=== PATIENT | female | born 1980 | race Caucasian/White ===

== ENCOUNTER 2024-11-20 19:57 | Emergency (ER) | payer BC, SELFPAY ==
--- OUTSIDE RECORDS SUMMARY | 2024-11-06 14:32 | XMS_ITS | Encounter Summary ---
Author Organization [facility] tem Address [facility] [place] [id number] [address] [place] [address] Care Team Providers Care Allied Health Instructor Name Role Phone Unavailable Primary Care Provider Unavailabl e Encounter Details Date Type Department Care Team (Latest Contact Info) Description 11/06/2024 2:32 PM EDT - 11/06/2024 11:59 PM EDT Hospital Encounter [facility] - Mammography/DEXA Imaging [address] [place] [address] Visit for screening mammogram Discharge Disposition: Home Social History Tobacco Use Types Packs/Day Years Used Date Smoking Tobacco: Never Smokeless Tobacco: Never Alcohol Use Standard Drinks/Week Comments No 0 (1 standard drink = 0.6 oz pur e alcohol) Childcare Answer Date Recorded Childcare Unknown 10/09/2018 Employment Answer Date Recorded Employment Unknown 10/09/2018 Hunger Screening Answer Date Recorded Within the past 12 months we worried whether our food would run out before we got money to buy more. Never True 07/07/2024 Within the past 12 months th e food we bought just didn't last and we didn't have money to get more. Never True 07/07/2024 Purpose - Life Answer Date Recorded Purpose and direction in life Unknown Comments No Sex and Gender Information Value Date Recorded Sex Assigned at Not on file Legal Sex Female 11:22 AM EDT Gender Identity Not on file Sexual Orientation Not on file documented as of this encounter Last Filed Vital Signs Vital Sign Reading Time Taken Comments Blood Pressure - - Pulse - - Temperature - - Respiratory Rate - - Oxygen Saturation - - Inhaled Oxygen Concentration - - Weight 68.9 kg (152 lb) 11/06/2024 2:39 PM EDT Height 160 cm (5' 3 ) 11/06/2024 2:39 PM EDT Body Mass Index 26.93 11/06/2024 2:39 PM EDT documented in this encounter Medications at Time of Discharge albuterol (PROVENTIL HFA;VENTOLIN HFA) 90 mcg/actuation inhalerIndicatio ns:Persistent asthma without complication, unspecified asthma severity Inhale 2 puffs every 4 (four) hours as needed for wheezing. 18 g 5 02/20/2022 albuterol (PROVENTIL HFA;VENTOLIN HFA) 90 mcg/actuation inhaler Inhale 2 puffs every 4 (four) hours as needed for wheezing or shortness of breath. aspirin-acetamin ophen-caffeine (EXCEDRIN EXTRA STRENGTH) 250-250-65 mg per tablet Take 2 tablets by mouth. cholecalciferol, vitamin D3, 2,000 units capsule Take 1 capsule (2,000 Units total) by mouth in the morning. 10/21/2024 DULoxetine (CYMBALTA) 30 mg capsule Take 1 capsule (30 mg total) by mouth in the morning. 11/03/2024 fluticasone propionate (FLONASE) 50 mcg/actuation nasal spray Administer 1 spray into each nostril in the morning. 16 g 07/08/2024 ibuprofen (MOTRIN) 800 mg tablet Take 1 tablet (800 mg total) by mouth every 6 (six) hours as needed for pain, fever or headaches. omeprazole (PriLOSEC) 20 mg capsule Take 1 capsule (20 mg total) by mouth every morning before breakfast. 10/07/2024 predniSONE (DELTASONE) 50 mg tablet Take 1 tablet (50 mg total) by mouth daily as needed. 10/07/2024 chlorhexidine (PERIDEX) 0.12 % solution Apply 15 mL to the mouth or throat in the morning and 15 mL before bedtime. 07/26/2022 5 inhalational spacing device (AEROCHAMBER MV) spacer 1 each by miscellaneous route in the morning and 1 each before bedtime. 1 each 02/20/2022 lidocaine (LIDODERM) 5 %Indications:Lef t thigh pain Place 1 patch on the skin daily. Remove & Discard patch within 12 hours or as directed by MD Escobedo patch 07/08/2024 5 documented as of this encounter Plan of Treatment Upcoming Encounters Date Type Department Care Team (Latest Contact Info) Description 5 3:40 PM EDT Support Visit [facility] - Pre Admit [address] [place] [address] 5 10:15 AM EDT Hospital Encounter [facility] - Surgery [address] [place] [address] Myron Tanner, DO [address] [place] [address] 5 10:15 AM EDT - 5 11:00 AM EDT Surgery [facility] - Surgery [address] [place] [address] Myron Tanner, DO [address] [place] [address] ESOPHAGOGASTRODUODENOSCOPY DIAGNOSTIC [70389 (CPT )] 5 3:30 PM EDT Appointment [facility] - Ultrasound [address] [place] [address] Zachary Blanco MD [address] [place] [address] 5 10:30 AM EDT Office Visit [facility] [place] [phone] Deng Cantrell MD [address] [place] [address] [address], [address] [place] [address] Scheduled Procedures Name Priority Associated Diagnoses Date/Ti me ESOPHAGOGASTRODUODENOSCOPY DIAGNOSTIC nausea, rectal bleeding 11/24/2024 10:15 AM EDT COLONOSCOPY DIAGNOSTIC / SCREENING nausea, rectal bleeding 11/24/2024 10:15 AM EDT documented as of this encounter Procedures Procedure Name Priority Date/Time Associated Diagnosis Comments MAMM SCREENING BILATERAL W CAD Routine 11/06/2024 2:51 PM EDT Visit for screening mammogram documented in this encounter Results * Mammography screening bilateral with CAD (11/06/2024 2:51 PM EDT) Anatomical Region Laterality Modality Breast Bilateral Mammography 11/10/2024 3:09 PM EDT Narrative 11/10/2024 3:14 PM EDT MARIANNA Toledo KIANNA 1980 [id number] EXAM: MAMM SCREENING BILATERAL W CAD, 11/06/2024 2:32 PM CLINICAL INDICATIONS: Screening, Visit for screening mammogram COMPARISON: 09/07/2020, 01/12/2017 TECHNIQUE: Bilateral digital tomosynthesis MLO and CC views of the breasts were obtained, with creation of synthetic 2D views. Computer aided detection was utilized. FINDINGS: The breasts are extremely dense, which lowers the sensitivity of mammography. There are no suspicious masses, calcifications, or areas of architectural distortion. IMPRESSION: No mammographic evidence of malignancy. BI-RADS: BI-RADS 1 - Negative RECOMMENDATION: Routine screening mammogram in 1 year. As a separate recommendation: Dense breast tissue can obscure small mammographic abnormalities. Supplemental screening methods may be considered to help detect abnormalities within dense tissue. These supplemental screening tests include Molecular Breast Imaging (MBI) and MRI. These tests should be performed in addition to, not as a replacement for, annual screening mammography. Patients should discuss with their healthcare provider which test is appropriate, as accessibility and/or insurance coverage may vary by patient and location. RISK ASSESSMENT: TC Lifetime risk: 10%. The patient's reported personal and family medical history was used calculate their Tyrer-Cuzick lifetime risk of malignancy. Scores less than 20% are not considered high risk per ACR guidelines and patient should continue with the above recommendation. Finalized by Anna Pratt MD on 11/10/2024 3:14 PM 1 d MAMM 1 YR FDA Accredited Performing Facility: [facility] - Mammography/DEXA Imaging [address] [facility] [address] Procedure Note Anna Prtat MD - 11/10/2024 MARIANNA HUTCHISON 1980 [id number] EXAM: MAMM SCREENING BILATERAL W CAD, 11/06/2024 2:32 PM CLINICAL INDICATIONS: Screening, Visit for screening mammogram COMPARISON: 09/07/2020, 01/12/2017 TECHNIQUE: Bilateral digital tomosynthesis MLO and CC views of the breastswere obtained, with creation of synthetic 2D views. Computer aideddetection was utilized. FINDINGS: The breasts are extremely dense, which lowers the sensitivity ofmammography. There are no suspicious masses, calcifications, or areas of architecturaldistortion. IMPRESSION: No mammographic evidence of malignancy. BI-RADS: BI-RADS 1 - Negative RECOMMENDATION: Routine screening mammogram in 1 year. As a separate recommendation: Dense breast tissue can obscure smallmammographic abnormalities. Supplemental screening methods may beconsidered to help detect abnormalities within dense tissue. Thesesupplemental screening tests include Molecular Breast Imaging (MBI) andMRI. These tests should be performed in addition to, not as a replacement for, annual screeningmammography. Patients should discuss with their healthcare provider whichtest is appropriate, as accessibility and/or insurance coverage may varyby patient and location. RISK ASSESSMENT: TC Lifetime risk: 10%. The patient's reported personal and family medical history was usedcalculate their Tyrer-Cuzick lifetime risk of malignancy. Scores less than20% are not considered high risk per ACR guidelines and patient shouldcontinue with the above recommendation. Finalized by Anna Pratt MD on 11/10/2024 3:14 PM 1 d MAMM 1 YR [facility] Accredited Performing Facility: [facility] - Mammography/DEXA Imaging [address] [facility] [address] [place] OPERATING ROOM TECH-INSPECTOR FUEL HOSE IMG MAMMOGRAPHY ORDERABL ES Final Result documented in this encounter Visit Diagnoses Diagnosis Visit for screening mammogram documented in this encounter
--- OUTSIDE RECORDS SUMMARY | 2024-11-20 10:00 | XMS_ITS | Encounter Summary ---
Author Organization [facility] Address [id number] [address] [place] [address] Care Team Providers Care Government Operations Consultant Name Role Phone Services, [facility] Primary Care Provider Reason for Visit * Reason Comments Nausea Nausea when eating, difficulty having bowel movement, last EGD/Colon 01/25/16 Encounter Details Date Type Department Care Team (Late st Contact Info) Description 11/20/2024 10:00 AM EDT [facility] [address] [place] [address] Larissa Serrato, PROM BURN OFF OPERATOR-SUPERVISOR [employer] [address] [place] [address] Nausea (Primary Dx); Rectal bleeding; History of gastric ulcer Social History Tobacco Use Types Packs/Day Years [...] got money to buy more. Never True 11/20/2024 Within the past 12 months th e food we bought just didn't last and we didn't have money to get more. Never True 11/20/2024 Purpose - Life Answer Date Recorded Purpose and direction in life Unknown Comments No Sex and Gender Information Value Date Recorded Sex Assigned at Not on file Legal Sex Female 11:22 AM EDT Gender Identity Not on file Sexual Orientation Not on file documented as of this encounter Last Filed Vital Signs Vital Sign Reading Time Taken Comments Blood Pressure 175/88 11/20/2024 10:03 AM EDT Pulse 71 11/20/2024 10:03 AM EDT Temperature - - Respiratory Rate - - Oxygen Saturation - - Inhaled Oxygen Concentration - - Weight 69.4 kg (153 lb) 11/20/2024 10:03 AM EDT Height 160 cm (5' 3 ) 11/20/2024 10:03 AM EDT Body Mass Index 27.1 11/20/2024 10:03 AM EDT documented in this encounter Progress Notes * Larissa Serrato, PROM BURN OFF OPERATOR-SUPERVISOR MIRROR [employer]RICATION - 11/20/2024 10:00 AM EDT Images from the original note were not included. Chief Complaint: Nausea History of Present Illness Marianna Bell is a 44 y.o. female who presents to the office for nausea and upper abdominal pain. Symptoms started 3-4 weeks ago. She states she feels intensely hungry but can not eat due to hernausea. Even when she does force herself to eat her intense hunger does not go away. She feels backed up with air. She states she does not have normal bowel movements. She endorses straining, but states her bowel movements are soft. She also had a few episodes of bloody stool. She states she drinks very little water and eats minimal fiber. She has been drinking tea. She does not smoke. She has tried Gas-X with no relief. She is taking omeprazole 20 mg daily. She had a CT of her abdomen and pelvis 07/07/2024 which was unremarkable. Her last EGD and colonoscopy were in 2018. EGD revealed esophagitis and several gastric ulcers. Colonoscopy was normal. She is very concerned as colon cancer runs on her mom's side of the family. Shehad a HIDA scan in 2018 that was normal. She has fibromyalgia. Review of Systems Constitutional: Negative for fever and unexpected weight change. HENT: Negative for trouble swallowing. Respiratory: Negative for shortness of breath. Cardiovascular: Negative for chest pain. Gastrointestinal: Positive for nausea, abdominal pain and blood in stool. Negative for diarrhea andconstipation. Genitourinary: Negative for dysuria and difficulty urinating. Musculoskeletal: Negative for gait problem. Skin: Negative for rash and wound. Neurological: Negative for dizziness, weakness and light-headedness. Hematological: Does not bruise/bleed easily. Psychiatric/Behavioral: Negative for confusion. 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[facility]) Migraines Visual impairment Past Surgical History: Procedure Laterality Date ANKLE SURGERY SECTION 99,03,06 x 3 COLONOSCOPY N/A 01/24/2018 Performed by Myron Tanner DO at [facility] EGD N/A 01/24/2018 Performed by Myron Tanner DO at [facility] FRACTURE SURGERY LAPAROSCOPY SINUS SURGERY TONSILLECTOMY UMBILICAL HERNIA REPAIR No Known Allergies Current Outpatient Medications: albuterol (PROVENTIL HFA;VENTOLIN HFA) 90 mcg/actuation inhaler, Inhale 2 puffs every 4 (four) hours as needed for wheezing., Disp: 18 g, Rfl: 5 albuterol (PROVENTIL HFA;VENTOLIN HFA) 90 mcg/actuation inhaler, Inhale 2 puffs every 4 (four) hours as needed for wheezing or shortness of breath., Disp: , Rfl: urxmixx-jrllxkgpbulwk-rtdjsrib (EXCEDRIN EXTRA STRENGTH) 250-250-65 mg per tablet, Take 2 tablets by mouth., Disp: , Rfl: cholecalciferol, vitamin D3, 2,000 units capsule, Take 1 capsule (2,000 Units total) by mouth in the morning., Disp: , Rfl: DULoxetine (CYMBALTA) 30 mg capsule, Take 1 capsule (30 mg total) by mouth in the morning., Disp: ,Rfl: fluticasone propionate (FLONASE) 50 mcg/actuation nasal spray, Administer 1 spray into each nostrilin the morning. (Patient taking differently: Administer 1 spray into each nostril daily as needed.), Disp: 16 g, Rfl: 0 ibuprofen (MOTRIN) 800 mg tablet, Take 1 tablet (800 mg total) by mouth every 6 (six) hours as needed for pain, fever or headaches., Disp: , Rfl: omeprazole (PriLOSEC) 20 mg capsule, Take 1 capsule (20 mg total) by mouth every morning before breakfast., Disp: , Rfl: predniSONE (DELTASONE) 50 mg tablet, Take 1 tablet (50 mg total) by mouth daily as needed., Disp: ,Rfl: sod sulf-pot chloride-mag sulf 1.479-0.188- 0.225 gram tablet, Please see instructional sheet givenby physicians office., Disp: 24 tablet, Rfl: 0 Social History Socioeconomic History Marital status: Spouse name: Not on file Number of children: Not on file Years of education: Not on file Highest education level: Not on file Occupational History Not on file Tobacco Use Smoking status: Never Smokeless tobacco: Never Vaping Use Vaping status: Never Used Substance and Sexual Activity Alcohol use: No Drug use: Never Sexual activity: Defer Other Topics Concern Not on file Social History Narrative Not on file Social Drivers of Health Financial Resource Strain: Not on file Food Insecurity: No Food Insecurity (11/20/2024) Hunger Screening Food Insecurity - Worry: Never True Food Insecurity - Inability: Never True Transportation Needs: Not on file Physical Activity: Not on file Stress: Not on file Social Connections: Not on file Interpersonal Safety: Not on file Housing Instability: Not on file Family History Problem Relation Age of Onset Colonic polyp Mother Hypertension Mother Hypertension Father Polycystic kidney disease Father Diabetes Father Kidney disease Father Colon cancer Maternal Grandmother Colon cancer Other Kidney disease Paternal Uncle Both types in run in fathers family Breast cancer Neg Hx Objective Physical Exam Constitutional: Appearance: She is not toxic-appearing. HENT: Head: Normocephalic and atraumatic. Mouth/Throat: Mouth: Mucous membranes are moist. Eyes: Pupils: Pupils are equal, round, and reactive to light. Cardiovascular: Rate and Rhythm: Normal rate. Pulmonary: Effort: Pulmonary effort is normal. No respiratory distress. Abdominal: General: There is no distension. Palpations: Abdomen is soft. Tenderness: There is no abdominal tenderness. There is no guarding or rebound. Musculoskeletal: General: Normal range of motion. Skin: General: Skin is warm and dry. Neurological: Mental Status: She is alert and oriented to person, place, and time. Mental status is at baseline. Vital Signs: Blood pressure 175/88, pulse 71, height 160 cm (5' 3 ), weight 69.4 kg (153 lb), last menstrual period 10/16/2024. Respiratory Source: No data recorded Admission Weight: Weight: 69.4 kg (153 lb) Labs Lab Results Component Value Date WBC 7.2 07/07/2024 HGB 13.5 07/07/2024 HCT 38.8 07/07/2024 MCV 86 07/07/2024 PLT 340 07/07/2024 Lab Results Component Value Date GLU 104 (H) 07/07/2024 CALCIUM 9.0 07/07/2024 K 3.7 07/07/2024 CO2 24 07/07/2024 CL 110 (H) 07/07/2024 BUN 24 (H) 07/07/2024 CREATININE 0.69 07/07/2024 No results found for: AMYLASE Lab Results Component Value Date LIPASE 33 01/18/2021 Lab Results Component Value Date ALT 26 07/16/2024 AST 22 07/16/2024 ALKPHOS 47 07/07/2024 Lab Results Component Value Date INR 1.1 10/28/2017 PROTIME 12.8 (H) 10/28/2017 Assessment Nausea, upper abdominal pain rule out gastritis, ulcers Rectal bleeding Family history of colon cancer in grandmother and uncle History of fibromyalgia Plan Increase omeprazole to 40 mg. Cut back on tea if it is caffeinated. Encouraged adequate water and healthy diet with fruits and vegetables. Schedule EGD and colonoscopy. Evaluation included: Preparing to see the patient (e.g., review of tests) Obtaining and/or reviewing separately obtained history Performing a medically appropriate examination and/or evaluation Counseling and educating the patient/family/caregiver Referring and communicating with other health residential child care counselor Nausea [R11.0] MELVA MAHAN [facility] [place] [place] This note was created with the assistance of a speech recognition program. While intending to generate a timely document that accurately reflects the content of the visit, no guarantee can be provided that every grammatical or spelling mistake has been or will be identified or corrected. Thank you for your understanding. MELVA Mahan 11/20/24 1104 documented in this encounter Plan of Treatment Upcoming Encounters Date Type Department Care Team (Latest Contact Info) Description 3:40 PM EDT Support Visit [facility] - Pre Admit [address] [place] [address] 5 10:15 AM EDT Hospital Encounter [facility] - Surgery [address] [place] [address] Myron Tanner, DO [address] [place] [address] 5 10:15 AM EDT - 5 11:00 AM EDT Surgery [facility] - Surgery [address] [place] [address] Myron Tanner, DO [address] [place] [address] ESOPHAGOGASTRODUODENOSCOPY DIAGNOSTIC [37336 (CPT )] 5 3:30 PM EDT Appointment [facility] - Ultrasound [address] [place] [address] Zachary Blanco MD [address] [place] [address] 5 10:30 AM EDT Office Visit [facility] Neurology [address] [place] [address] Deng Cantrell MD [address] [place] [address] 101, [address] [place] [address] Scheduled Orders Name Type Priority Associated Diagnoses Orde r Schedule Colonoscopy GI Routine Rectal bleeding 1 Occurrences starting 11/20/2024 until 11/20/2025 EGD GI Routine Nausea 1 Occurrences starting 11/20/2024 until 11/20/2025 Scheduled Procedures Name Priority Associated Diagnoses Date/Ti me ESOPHAGOGASTRODUODENOSCOPY DIAGNOSTIC nausea, rectal bleeding 11/24/2024 10:15 AM EDT COLONOSCOPY DIAGNOSTIC / SCREENING nausea, rectal bleeding 11/24/2024 10:15 AM EDT documented as of this encounter Goals Goal Patient Goal Type Associated Problems Recent Progress Patient-Stated? Author Autogenera kathrine Goal Care Plan Autogenerated Problem No Lamar Devibeth documented as of this encounter Visit Diagnoses Diagnosis Nausea- Primary Nausea alone Rectal bleeding Hemorrhage of rectum and anus History of gastric ulcer documented in this encounter Additional Health Concerns Active Problems Noted Date Diagnosed Date Autogenerated Problem 11/20/2024 documented as of this encounter Care Teams Government Operations Consultant Relationship Specialty Start Date End Date [facility], [facility] [address] [place] PCP - General Family Medicine 11/20/24 documented as of this encounter
--- OUTSIDE RECORDS SUMMARY | 2024-11-20 18:02 | XMS_ITS | Encounter Summary ---
Author Organization [facility] tem Address [id number] [address] [place] [address] Care Team Providers Care Athletic Coach Name Role Phone Services, [facility] Primary Care Provider Reason for Visit * Reason Comments Abdominal Pain Encounter Details Date Type Department Care Team (Late st Contact Info) Description 11/20/2024 6:02 PM EDT - 11/20/2024 7:13 PM EDT Emergency [facility] - Emergency [address] [place] [address] Discharge Disposition: Left Without Treatment Social History Tobacco Use Types Packs/Day Years [...] Sign Reading Time Taken Comments Blood Pressure 135/97 11/20/2024 6:08 PM EDT Pulse 91 11/20/2024 6:08 PM EDT Temperature 36.4 C (97.5 F) 11/20/2024 6:08 PM EDT Respiratory Rate 20 11/20/2024 6:08 PM EDT Oxygen Saturation 100% 11/20/2024 6:08 PM EDT Inhaled Oxygen Concentration - - Weight 69.4 kg (153 lb) 11/20/2024 6:08 PM EDT Height 160 cm (5' 3 ) 11/20/2024 6:08 PM EDT Body Mass Index 27.1 11/20/2024 6:08 PM EDT documented in this encounter Medications [...] total) by mouth daily as needed. 10/07/2024 sod sulf-pot chloride-mag sulf 1.479-0.188- 0.225 gram tabletIndication s:Rectal bleeding Please see instructional sheet given by physicians office. 24 tablet 11/20/2024 documented as of this encounter ED Notes * Cristal Parr RN - 11/20/2024 6:10 PM EDT Pt presents with c/o abdominal pain for 4 weeks that has progressively gotten worse the last 2 days. Pt reports is scheduled for a scope on Sunday. documented in this encounter Plan of Treatment Upcoming Encounters Date Type Department Care Team (Latest Contact Info) Description 5 3:40 PM EDT Support Visit [facility] - Pre Admit [address] [place] [address] 5 10:15 AM EDT Hospital Encounter [facility] - Surgery [address] [place] [address] Myron Tanner, DO [address] [place] [address] 5 10:15 AM EDT - 5 11:00 AM EDT Surgery [facility] - Surgery [address] [place] [address] Myron Tanner, DO [address] [place] [address] ESOPHAGOGASTRODUODENOSCOPY DIAGNOSTIC [40194 (CPT )] 5 3:30 PM EDT Appointment [facility] - Ultrasound [address] [place] [address] Zachary Blanco MD [address] [place] [address] 5 10:30 AM EDT Office Visit [facility] Physicians Neurology [address] [place] [address] Deng Cantrell MD [address] [place] [address], [facility] [address] [place] [address] Scheduled Orders Name Type Priority Associated Diagnoses Order Schedule POCT Nursing Urine Macroscopic UA Point of Care Testing STAT Once for 1 Occurrences starting 11/20/2024 until 11/20/2024 Extra Urine Lab STAT Once for 1 Occurrences starting 11/20/2024 until 11/20/2024 Extra Urine Culture Lab STAT Once for 1 Occurrences starting 11/20/2024 until 11/20/2024 Scheduled Procedures Name Priority Associated Diagnoses Date/Ti me ESOPHAGOGASTRODUODENOSCOPY DIAGNOSTIC nausea, rectal bleeding 11/24/2024 10:15 AM EDT COLONOSCOPY DIAGNOSTIC / SCREENING nausea, rectal bleeding 11/24/2024 10:15 AM EDT documented as of this encounter Goals Goal Patient Goal Type Associated Problems Recent Progress Patient-Stated? Author Autogenera kathrine Goal Care Plan Autogenerated Problem No Kita Devi documented as of this encounter Visit Diagnoses Not on filedocumented in this encounter Additional Health Concerns Active Problems Noted Date Diagnosed Date Autogenerated Problem 11/20/2024 documented as of this encounter Care Teams Athletic Coach Relationship Specialty Start Date End Date [facility], [facility] [address] [place], [place] PCP - General Family Medicine 11/20/24 documented as of this encounter
[2024-11-20 20:08] VITALS: BP 136/87; PULSE 68; TEMP 36.4; O2SAT 100; BMI 26.6
[2024-11-20 20:29] LABS: Glucose Urine UA NEGATIVE (NEGATIVE)
--- NOTE | 2024-11-20 20:41 | ED.ABDPAIN1 ---
HPI - Abdominal Pain General Chief Complaint: Abdominal Pain Stated Complaint: STOMACH PAINS Time Seen by Provider: 11/20/24 20:13 Source: patient Mode of arrival: walk-in Limitations: no limitations History of Present Illness HPI narrative: This 44-year-old female presents for evaluation of abdominal pain that has been present for the past month. She states it is all across her upper abdomen. She states she has episodes of nausea when she tries to eat. She states she has early satiety. She states that she has been taking a lot of Gas-X and trying fhuo-krf-[id number] natural medications to try to relieve her symptoms. She states her stools are now ribbonlike. She states that she has lost weight. She has not had any fevers or chills. She denies any chest pain or shortness of breath. She did contact Dr. Tanner and is scheduled for a colonoscopy on Sunday. She states the pain has been present for the past month but for the past week it has become increasingly severe and she has had to call off from work multiple times. She is concerned because there is a family history of colon cancer. She also states that she has had 3 hysterectomies and was told that she had endometriosis and adhesions in her abdomen. She is passing gas and belching. This does not relieve any of her pain. Related Data Home Medications ?Medication ?Instructions ?Recorded ?Confirmed amoxicillin 500 mg capsule 500 mg PO Q8H 11/20/24 11/20/24 duloxetine 30 mg capsule,delayed 30 mg PO DAILY 11/20/24 11/20/24 release ergocalciferol (vitamin D2) 1,250 1,250 mcg PO DAILY 11/20/24 11/20/24 mcg (50,000 unit) capsule omeprazole 20 mg capsule,delayed 20 mg PO DAILY 11/20/24 11/20/24 release Allergies Allergy/AdvReac Type Severity Reaction Status Date / Time No Known Drug Allergies Allergy Verified 11/20/24 20:06 Review of Systems ROS Status of ROS 10 or more systems reviewed and unremarkable except as noted in history and below PFSH PFSH Social History Little interest or pleasure in doing things: not at all Feeling down, depressed, or hopeless: not at all Exam Narrative Exam Narrative: Vital signs and Nursing Notes reviewed: Patient is afebrile with a normal pulse, blood pressure is minimally elevated at 136/87, she is not hypoxic with pulse ox of 100% on room air General: Awake, alert, oriented, uncomfortable appearing female, she is lying on the stretcher with her knees pulled up to her abdomen and panting somewhat, no respiratory distress, no active vomiting HEENT: Normocephalic atraumatic, mucous membranes are moist and pink, eyes are clear, normal conjunctiva, vision is grossly intact Chest: Lungs are clear to auscultation with good air entry, there is no wheezing rhonchi or rales appreciated no accessory muscle use, patient is speaking in complete sentences-no chest wall tenderness to palpation CVS: Regular rate and rhythm S1-S2, no murmurs rubs or gallops, pulses are brisk and equal bilaterally ABD: Soft, nondistended, tenderness in the epigastrium, right upper quadrant and left upper quadrant with voluntary guarding, there is no lower abdominal tenderness appreciated. Extremities: Moving all extremities, no lower extremity tenderness or swelling noted, negative Homans' sign, pulses are brisk and equal bilaterally Skin: Normal in appearance without rash,pallor, petechiae or purpura Neuro: No focal deficits Constitutional Vital Signs, click to edit/add: Last Vital Signs Temp 97.6 F 11/20/24 20:08 Pulse 68 11/20/24 20:08 Resp 18 11/20/24 20:08 BP 136/87 11/20/24 20:08 Pulse Ox 100 11/20/24 20:08 O2 Del Method Room Air 11/20/24 20:08 Course Vital Signs Vital signs: Vital Signs Temperature 97.6 F 11/20/24 20:08 Pulse Rate 68 11/20/24 20:08 Respiratory Rate 18 11/20/24 20:08 Blood Pressure 136/87 11/20/24 20:08 Pulse Oximetry 100 11/20/24 20:08 Oxygen Delivery Method Room Air 11/20/24 20:08 Temperature 97.6 F 11/20/24 20:08 Pulse Rate 68 11/20/24 20:08 Respiratory Rate 18 11/20/24 20:08 Blood Pressure 136/87 11/20/24 20:08 Pulse Oximetry 100 11/20/24 20:08 Oxygen Delivery Method Room Air 11/20/24 20:08 MDM - Abdominal Pain MDM Narrative Medical decision making narrative: This 44-year-old female presents for evaluation of generalized abdominal pain specifically in her upper abdomen which has been going on for the past month. She has early satiety, nausea, thin bowel movements and weight loss. She appears to be markedly uncomfortable upon arrival. She has not had any fever. She does have a colonoscopy scheduled with Dr. Tanner next week. She is concerned because there is a family history of colon cancer. Upon arrival she was very uncomfortable appearing and medicated with IV morphine, Zofran and IV fluids. Routine labs were ordered. She has a normal white count and hemoglobin. Electrolytes, liver function test and lactic acid are normal. Lipase and troponin are both normal. Urine is negative for infection. CT scan of the abdomen pelvis with IV contrast was ordered and does not show any acute findings to account for the patient's pain. The results of her labs and CT scan were discussed with her and she was given a copy to share with Dr. Tanner next week. Lab Data Attestation: I reviewed the patient's lab results. Labs: Lab Results 11/20/24 11/20/24 Range/Units 20:15 21:00 WBC 8.4 (4.0-11.0) 10^3/uL RBC 4.67 (4.20-5.40) 10^6/uL Hgb 13.6 (12.0-16.0) g/dL Hct 39.4 (36.0-48.0) % MCV 84.4 (81.0-99.0) fL MCH 29.1 (26.7-34.0) pg MCHC 34.5 (29.9-35.2) g/dL RDW 12.8 (11.0-15.0) % Plt Count 295 (150-450) 10^3/uL MPV 8.8 L (9.5-13.5) fL Neut % (Auto) 70.1 (43.0-75.0) % Lymph % (Auto) 21.6 (20.5-60.0) % [place] % (Auto) 7.2 (1.7-12.0) % Eos % (Auto) 0.5 L (0.9-7.0) % Baso % (Auto) 0.4 (0.2-2.0) % Neut # (Auto) 5.9 (1.4-6.5) 10^3/uL Lymph # (Auto) 1.8 (1.2-3.8) 10^3/uL [place] # (Auto) 0.6 (0.3-0.8) 10^3/uL Eos # (Auto) 0.0 (0.0-0.7) 10^3/uL Baso # (Auto) 0.0 (0.0-0.1) 10^3/uL Abs Immat Gran (auto) 0.02 (0.00-0.03) 10^3/uL Imm/Tot Granulo (auto) 0.2 (0.0-0.5) % Sodium 139 (136-145) mmol/L Potassium 3.3 L (3.5-5.1) mmol/L Chloride 105 (98-107) mmol/L Carbon Dioxide 23.8 (21.0-32.0) mmol/L Anion Gap 13.5 BUN 14.0 (7.0-18.0) mg/dL Creatinine 0.70 (0.55-1.02) mg/dL Est GFR ( Amer) >60 (>=60 mL/min/1.73m^2) Est GFR (Non-Af Amer) >60 (>=60 mL/min/1.73m^2) BUN/Creatinine Ratio 20.0 Glucose 110 H (74-106) mg/dL Lactate 1.8 (0.4-2.0) mmol/L Calcium 9.0 (8.5-10.1) mg/dL Total Bilirubin 0.4 (0.2-1.0) mg/dL AST 18 (15-37) U/L ALT 31 (14-59) U/L Alkaline Phosphatase 58 (46-116) U/L Troponin I High Sens <4.0 L (4.0-51.3) pg/mL Total Protein 7.1 (6.4-8.2) g/dL Albumin 3.7 (3.4-5.0) g/dL Globulin 3.4 g/dL Albumin/Globulin Ratio 1.1 Lipase 45.0 (16.0-77.0) U/L Urine Color Yellow (YELLOW) Urine Clarity Clear (CLEAR) Urine pH 7.5 (5.0-9.0) Ur Specific [place] 1.015 (1.005-1.025) Urine Protein Trace (NEG/TRACE) mg/dL Urine Glucose (UA) Negative (NEGATIVE) mg/dL Urine Ketones Trace A (NEGATIVE) mg/dL Urine Occult Blood Small A (NEGATIVE) Urine Nitrite Negative (NEGATIVE) Urine Bilirubin Negative (NEGATIVE) Urine Urobilinogen 0.2 (0.2-1.0) EU/dL Ur Leukocyte Esterase Negative (NEGATIVE) Urine RBC 0-2 (0-2) #/HPF Urine WBC 0-2 A (NONE SEEN) #/HPF Ur Squamous Epith Cells Few A (NONE/RARE) #/LPF Urine Crystals None seen (None Seen) #/HPF Urine Bacteria Trace A (NONE SEEN) #/HPF Urine Casts None seen (NONE SEEN) #/LPF Urine Mucus Moderate A (NONE SEEN) Ur Culture Indicated? No Urine HCG, Qual Negative (NEGATIVE) Imaging Data x: Radiologist's impression: ITS Impressions Abdomen/Pelvis CT 11/20/24 20:55 IMPRESSION: No acute findings Impression dictated by: Alexsander Lara M.D. 11/20/2024 9:58 PM Dictation Location: [employer] Electronically authenticated by: [id number] Y Date: 11/20/2024 21:58 Discharge Plan Discharge Chief Complaint: Abdominal Pain Clinical Impression: Abdominal pain Patient Disposition: Home, Self-Care Time of Disposition Decision: 22:24 Condition: Good Prescriptions / Home Meds: No Action omeprazole 20 mg capsule,delayed release(DR/EC) 20 mg PO DAILY duloxetine 30 mg capsule,delayed release(DR/EC) 30 mg PO DAILY ergocalciferol (vitamin D2) 1,250 mcg (50,000 unit) capsule 1,250 mcg PO DAILY amoxicillin 500 mg capsule 500 mg PO Q8H Print Language: Slovak Instructions: Abdominal Pain (ED), Colonoscopy (DC) Referrals: [facility] [Other] - 1 week Myron Tanner MD [Physician, General Surgery] - 1 week Physician,Non-Staff, [Primary Care Provider] - 1 week Discharge Date/Time: 11/20/24 22:40
[2024-11-20 20:42] LABS: HCG Qualitative Urine* NEGATIVE (NEGATIVE)
[2024-11-20 20:49] LABS: Cast Seen? NONE SEEN #/LPF (NONE SEEN); Crystals Seen? None Seen #/HPF (None Seen); Urine Culture Indicated NO
--- NOTE | 2024-11-20 20:55 | CT_ITS ---
The [address] [address] Patient Name: CONSTANCE HUTCHISON MRN: [id number] date: 1980 Sex: F Assigned Patient Location: ER Current Patient Location: .MAIN Accession/Order Number: [id number] Exam Date: 11/20/2024 21:53 Report Date: 11/20/2024 21:58 At the request of: TAI ULLOA MD Procedure: CT abdomen pelvis w con CT Abdomen and Pelvis withcontrast TECHNIQUE: Axial imaging with 2-D reconstruction.100 cc of Omni 300. The CT exam was performed using one or more the following dose reduction techniques: Automated exposure control, adjustment of the MA and/or Kv according to patient size, or use of the iterative reconstruction technique. COMPARISON: None History: Left-sided abdominal pain for 4 weeks LIMITATIONS: None LOWER THORAX Unremarkable LIVER: Unremarkable GALLBLADDER: No gallbladder abnormality identified. BILE DUCTS: No dilatation SPLEEN: Unremarkable PANCREAS: Unremarkable ADRENAL GLANDS: Unremarkable KIDNEYS:Tiny cysts. No hydronephrosis. AORTA: No abdominal aortic aneurysm identified. RETROPERITONEUM: No significant retroperitoneal abnormalities identified. MESENTERY:Unremarkable STOMACH:Unremarkable SMALL BOWEL: The small bowel loops are nondistended. APPENDIX: The appendix is normal. COLON: Unremarkable URINARY BLADDER: Urinary bladder is unremarkable. REPRODUCTIVE SYSTEM: Reproductive structures are unremarkable. PNEUMOPERITONEUM: None PERITONEAL FLUID:None BONY STRUCTURES: Unremarkable ABDOMINAL WALL: Unremarkable CT/CT abdomen pelvis w con IMPRESSION: No acute findings Impression dictated by: Alexsander Lara M.D. 11/20/2024 9:58 PM Dictation Location: [employer] Electronically authenticated by: [id number] Y Date: 11/20/2024 21:58
[2024-11-20] MEDS: FAMOTIDINE/PF 20 MG/2 ML VIAL IV (21:10)
[2024-11-20] MEDS: MORPHINE SULFATE 4 MG/ML VIAL IV (21:10)
[2024-11-20 21:11] LABS: Hematocrit 39.4 % (36.0-48.0); Hemoglobin 13.6 g/dL (12.0-16.0); Immature Granulocytes Abs Auto 0.02 10^3/uL (0.00-0.03); Immature Granulocytes Pct Auto 0.2 % (0.0-0.5); Lymphocytes Absolute Auto 1.8 10^3/uL (1.2-3.8); Mean Corpuscular HGB Conc 34.5 g/dL (29.9-35.2); Mean Corpuscular Hemoglobin 29.1 pg (26.7-34.0); Mean Corpuscular Volume 84.4 fL (81.0-99.0); Platelet Count 295 10^3/uL (150-450); Red Blood Count 4.67 10^6/uL (4.20-5.40); White Blood Count 8.4 10^3/uL (4.0-11.0)
--- OUTSIDE RECORDS SUMMARY | 2024-11-20 21:15 | XMS_ITS | Clinical Summary ---
Author Organization [facility] Address [address] [place] [id number] Care Team Providers Care Seconds Inspector Name Role Phone Veena Emily CUT IN WORKER Unavailable [phone] Denita Velazquez CUT IN WORKER Unavailable [phone] Gal Medina MD Unavailable [phone] Allergies No known active allergies Medications naproxen sodium (ALEVE) 220 mg tablet Take 220 mg by mouth twice daily with meals. Active biotin 10,000 mcg ODT Take by mouth. Active Vitamin D3 5000 U (Pure Encapsulations) Take 1 capsule by mouth daily with food. 9 Active Magnesium (Citrate) 150 mg (Pure Encapsulations) Take 4 capsules daily. 120 capsule 5 9 Active Meriva-SR (Travon) Take 2 capsules by mouth twice daily. 9 Active Melatonin-SR (Klaire/Prothera ) Take 1 capsule one hour before bedtime 9 Active ergocalciferol, vitamin D2, (VITAMIN D) 50,000 unit capsule Take 1 capsule by mouth once each week. 8 capsule 3 9 Active doxycycline monohydrate (MONODOX) 100 mg capsule Take 1 capsule by mouth twice daily. 10 capsule 0 Active Active Problems Problem Noted Date Diagnosed Date Constipation 07/17/2018 Bloating 07/17/2018 Chronic pain 07/17/2018 Fibromyalgia 07/17/2018 Fatigue 07/17/2018 Social History Tobacco Use Types Packs/Day Years Used Date Smoking Tobacco: Never Smokeless Tobacco: Never Alcohol Use Standard Drinks/Week Comments Not Currently 0 (1 standard drink = 0.6 oz pur e alcohol) Area Deprivation Index Answer Date Oliver rded National Score (1-100), lower number is lower ri sk Not on file 04/08/2020 State Score (1-10), lower number is lower risk N ot on file 04/08/2020 Data from: https://www.neighborhoodatlas.medicine.[facility]/. Last address used for calculation Not on file 04/08/2020 Comments Unknown Sex and Gender Information Value Date Recorded Sex Assigned at Not on file Legal Sex Female 9:23 AM EST Gender Identity Not on file Sexual Orientation Not on file Last Filed Vital Signs Vital Sign Reading Time Taken Comments Blood Pressure 122/71 07/17/2018 9:56 AM EDT Pulse 74 07/17/2018 9:56 AM EDT Temperature - - Respiratory Rate - - Oxygen Saturation 99% 07/17/2018 9:56 AM EDT Inhaled Oxygen Concentration - - Weight 72.1 kg (159 lb) 07/17/2018 9:56 AM EDT Height 160 cm (5' 3 ) 07/17/2018 9:56 AM EDT Body Mass Index 28.17 07/17/2018 9:56 AM EDT Plan of Treatment Health Maintenance Due Date Last Done Comments Anxiety Screening 1999 Depression Screening 1999 HIV Screening 1999 Hepatitis C Screening 1999 DTaP,Tdap,Td Vaccine (1 - Tdap) 01/18/2000 Hepatitis B Vaccine (1 of 3 - 19+ 3-dose series) 01/17 Cervical Cancer Screening 2002 Mammogram Screening 2021 Influenza Vaccine (#1) 2024 Insurance [employer] MEDICAID OF [place] Care Teams Seconds Inspector Relationship Specialty Start Date End Date Emily Curiel CNP [address] [address] Referring Internal Medicine 07/10/19 Denita Velazquez CNP [address] [facility] [address] [place] [address] Referring Dermatology 07/04/21 Gal Medina MD [address] [place] [address] [address] [place] [address] Referring Ent - Otolaryngology 10/17/23
--- OUTSIDE RECORDS SUMMARY | 2024-11-20 21:15 | XMS_ITS | Clinical Summary ---
Author Organization [facility] Address [address] [place] [address], [address] [place] [address] Care Team Providers Care Automotive Parts Specialist Name Role Phone Unavailable Primary Care Provider Unavailabl e Social History Tobacco Use Types Packs/Day Years Used Date Smoking Tobacco: Never Assessed Comments Unknown Sex and Gender Information Value Date Recorded Sex Assigned at Not on file Legal Sex Female 11:38 PM EST Gender Identity Not on file Sexual Orientation Not on file Plan of Treatment Not on file
--- OUTSIDE RECORDS SUMMARY | 2024-11-20 21:15 | XMS_ITS | Encounter Summary ---
Author Organization [facility] tem Address [id number] [address] [place] [address] Care Team Providers Care Metal Checker Name Role Phone Services, [facility] Primary Care Provider Reason for Visit * Reason Onset Date Comments NEURO REFERRAL 10/08/2024 Encounter Details Date Type Department Care Team (Late st Contact Info) Description 10/08/2024 Telephone [facility] Neurology, A Department of [facility] [address] [facility] [address] [place] [address] Christa Goodwin NEURO REFERRAL Social History Tobacco Use Types Packs/Day Years [...] on file documented as of this encounter Miscellaneous Notes * Telephone Encounter - Christa Goodwin - 10/08/2024 1:44 PM EDT Received Referral for patient from: Mercedes Slade MD Dx: Neuropathic pain Faxed back to the providers office requesting medical notes to support the diagnosis. Fax #: [phone] Date faxed to provider: 10.08.24 documented in this encounter Plan of Treatment Upcoming Encounters Date Type Department Care Team (Latest Contact Info) Description 5 3:40 PM EDT Support Visit [facility] - Pre Admit [address] [place] [address] 5 10:15 AM EDT Hospital Encounter [facility] - Surgery [address] [place] [address] Myron Tanner, DO [address] [place] [address] 5 10:15 AM EDT - 5 11:00 AM EDT Surgery [facility] [address] [place] [address] Myron Tanner, DO [address] [place] [address] ESOPHAGOGASTRODUODENOSCOPY DIAGNOSTIC [19963 (CPT )] 5 3:30 PM EDT Appointment [facility] - Ultrasound [address] [place] [address] Zachary Blanco MD [facility] [place], [place] [id number] 5 10:30 AM EDT Office Visit [facility] Physicians Neurology [place] [address] Deng Cantrell MD [address] [place] [address], [facility] [address] [place] [address] Scheduled Procedures Name Priority Associated Diagnoses Date/Ti me ESOPHAGOGASTRODUODENOSCOPY DIAGNOSTIC nausea, rectal bleeding 11/24/2024 10:15 AM EDT COLONOSCOPY DIAGNOSTIC / SCREENING nausea, rectal bleeding 11/24/2024 10:15 AM EDT documented as of this encounter Visit Diagnoses Not on filedocumented in this encounter Care Teams Metal Checker Relationship Specialty Start Date End Date [facility] [address] [place], [place] PCP - General Family Medicine 11/20/24 documented as of this encounter
--- OUTSIDE RECORDS SUMMARY | 2024-11-20 21:15 | XMS_ITS | Clinical Summary ---
Author Organization [facility] Address [address] [place] [address] Care Team Providers Care Veneer Jointer Offbearer Name Role Phone Unavailable Primary Care Provider Unavailabl e Social History Tobacco Use Types Packs/Day Years Used Date Smoking Tobacco: Never Assessed Comments Unknown Sex and Gender Information Value Date Recorded Sex Assigned at Not on file Legal Sex Female 7:10 PM EDT Gender Identity Not on file Sexual Orientation Not on file Last Filed Vital Signs Vital Sign Reading Time Taken Comments Blood Pressure 127/90 07/02/2019 12:00 PM EST Pulse - - Temperature - - Respiratory Rate - - Oxygen Saturation - - Inhaled Oxygen Concentration - - Weight 70.3 kg (155 lb) 07/02/2019 12:00 PM EST Height 160 cm (5' 3 ) 05/10/2021 12:00 PM EST Body Mass Index 27.46 07/02/2019 12:00 PM EST Plan of Treatment Not on file Insurance MEDICAID [place]
--- OUTSIDE RECORDS SUMMARY | 2024-11-20 21:15 | XMS_ITS | Clinical Summary ---
Author Organization [employer] tem Address [facility] [place]-[id number] [address] [place] [address] Care Team Providers Care Connie Cleaner Name Role Phone Services, [facility] Primary Care Provider Allergies No known active allergies Medications albuterol (PROVENTIL HFA;VENTOLIN HFA) 90 mcg/actuation inhalerIndicati ons:Persistent asthma without complication, unspecified asthma severity Inhale 2 puffs every 4 (four) hours as needed for wheezing. 18 g 5 02/21/20 22 Active albuterol (PROVENTIL HFA;VENTOLIN HFA) 90 mcg/actuation inhaler Inhale 2 puffs every 4 (four) hours as needed for wheezing or shortness of breath. Active ibuprofen (MOTRIN) 800 mg tablet Take 1 tablet (800 mg total) by mouth every 6 (six) hours as needed for pain, fever or headaches. Active aspirin-acetami nophen-caffeine (EXCEDRIN EXTRA STRENGTH) 250-250-65 mg per tablet Take 2 tablets by mouth. Active fluticasone propionate (FLONASE) 50 mcg/actuation nasal spray Administer 1 spray into each nostril in the morning. 16 g 07/09/19 25 Active Additional Information Patient taking differently:1 spray nasalDaily PRN, Informant: Self, Reported on 11/20/2024 cholecalciferol , vitamin D3, 2,000 units capsule Take 1 capsule (2,000 Units total) by mouth in the morning. 10/22/19 25 Active DULoxetine (CYMBALTA) 30 mg capsule Take 1 capsule (30 mg total) by mouth in the morning. 11/04/19 25 Active omeprazole (PriLOSEC) 20 mg capsule Take 1 capsule (20 mg total) by mouth every morning before breakfast. 10/08/19 Active predniSONE (DELTASONE) 50 mg tablet Take 1 tablet (50 mg total) by mouth daily as needed. 10/08/19 Active sod sulf-pot chloride-mag sulf 1.479-0.188- 0.225 gram tabletIndicatio ns:Rectal bleeding Please see instructional sheet given by physicians office. 24 tablet 11/21/19 Active inhalational spacing device (AEROCHAMBER MV) spacer 1 each by miscellaneous route in the morning and 1 each before bedtime. 1 each 02/21/20 Discontinu ed(Patient Stopped On Own) chlorhexidine (PERIDEX) 0.12 % solution Apply 15 mL to the mouth or throat in the morning and 15 mL before bedtime. 07/27/19 Discontinu ed(Patient Stopped On Own) lidocaine (LIDODERM) 5 %Indications:Le ft thigh pain Place 1 patch on the skin daily. Remove & Discard patch within 12 hours or as directed by MD 30 patch 07/09/19 Discontinu ed(Cost of medication ) Active Problems No known active problems Encounters Date Type Department Care Team Description 11/20/2024 6:02 PM EDT - 11/20/2024 7:13 PM EDT Emergency [facility] - Emergency [address] [place] [address] Discharge Disposition: Left Without Treatment 11/20/2024 10:00 AM EDT Office Visit [facility] Physicians General Surgery [address] [place] [phone] Larissa Serrato, EMAIL SPECIALIST-ROBERTH Nausea (Primary Dx); Rectal bleeding; History of gastric ulcer 11/20/2024 Travel 11/06/2024 2:32 PM EDT - 11/06/2024 11:59 PM EDT Hospital Encounter [facility] - Mammography/DEXA Imaging [address] [place] [address] Visit for screening mammogram Discharge Disposition: Home 11/06/2024 Travel 10/30/2024 12:32 PM EDT - 10/30/2024 11:59 PM EDT Hospital Encounter [facility] - MRI Imaging [address] [place] [address] Lumbar radiculopathy Discharge Disposition: Home 10/30/2024 Travel 10/28/2024 Telephone [facility] Department of [place] [address] [facility] [address] [place] [address] Federica Mackay reschedule 10/20/2024 Telephone [facility] Department of [place] [address] [facility] [address] [place] [address] Federica Mackay New Patient 10/15/2024 3:56 PM EDT - 10/15/2024 11:59 PM EDT Hospital Encounter [facility] - Vascular [address] [place] [address] Left leg pain Discharge Disposition: Home 10/15/2024 Travel 10/08/2024 Telephone [facility] Department of [place] [address] [facility] [address] [place] [address] Christa Goodwin A NEURO REFERRAL from Last 3 Months Family History Medical History Relation Name Comments Diabetes Father Dad Hypertension Father Dad Kidney disease Father Dad Polycystic kidney disease Father Dad Colon cancer Maternal Grandmother Grandma Colonic polyp Mother Mom Hypertension Mother Mom Colon cancer Other grandma's brother Kidney disease Paternal Uncle Dad Both types in run in fathers family Breast cancer Neg Hx Relation Name Status Comments Father Dad Alive Maternal Grandmother Grandma Alive Mother Mom Alive Other grandma's brother Paternal Uncle Dad Alive Social History Tobacco Use Types Packs/Day Years Used Date Smoking Tobacco: Never Smokeless Tobacco: Never Tobacco Cessation:Counseling Given: Not Answered Alcohol Use Standard Drinks/Week Comments No 0 [...] Mass Index 27.1 11/20/2024 6:08 PM EDT Plan of Treatment Upcoming Encounters Date Type Department Care Team (Latest Contact Info) Description 3:40 PM EDT Support Visit [facility] - Pre Admit [address] [place] [address] 5 10:15 AM EDT Hospital Encounter [facility] - Surgery [address] [place] [address] Myron Tanner, DO [address] [place] [address] 5 10:15 AM EDT - 11:00 AM EDT Surgery [facility] - Surgery [address] [place] [address] Myron Tanner, DO [address] [place] [address] ESOPHAGOGASTRODUODENOSCOPY DIAGNOSTIC [98366 (CPT )] 5 3:30 PM EDT Appointment [facility] - Ultrasound [address] [place] [address] Zachary Blanco MD [address] [place], [place] [id number] 5 10:30 AM EDT Office Visit [facility] Physicians Neurology [place] [address] [place] [address] Deng Cantrell MD [address] [facility] [address] [place] [address] Scheduled Procedures Name Priority Associated Diagnoses Date/Ti me ESOPHAGOGASTRODUODENOSCOPY DIAGNOSTIC nausea, rectal bleeding 11/24/2024 10:15 AM EDT COLONOSCOPY DIAGNOSTIC / SCREENING nausea, rectal bleeding 11/24/2024 10:15 AM EDT Health Maintenance Due Date Last Done Comments Depression Screening 1993 Adult BMI Follow Up Plan 1999 Pap Smear 2002 DTaP,Tdap and Td Vaccines (5 - Td or Tdap) 03/12/2024 03/12/2014, 1981, 1981, Additional history exists Influenza Vaccine 12/29/2024 01/28/2018 Adult BMI Screening 11/20/2025 11/20/2024 Tobacco Screening 11/20/2025 11/20/2024 Goals Goal Patient Goal Type Associated Problems Recent Progress Patient-Stated? Author Autogenera kathrine Goal Care Plan Autogenerated Problem No Devi, [employer] Not on file Procedures Procedure Name Priority Date/Time Associated Diagnosis Comments MAMM SCREENING BILATERAL W CAD Routine 11/06/2024 2:51 PM EDT Visit for screening mammogram MR LUMBAR SPINE W WO CONT Routine 10/30/2024 1:22 PM EDT Lumbar radiculopathy VASC ARTERIAL DOPPLER LOWER LIMITED SINGLE (COREY) Routine 10/15/2024 4:16 PM EDT Left leg pain from Last 3 Months Results * Mammography screening bilateral with CAD (11/06/2024 2:51 PM EDT) Anatomical Region Laterality Modality Breast Bilateral Mammography 11/10/2024 3:09 PM EDT Narrative 11/10/2024 3:14 PM EDT MARIANNA HUTCHISON 1980 [id number] EXAM: MAMM SCREENING BILATERAL W CAD, 11/06/2024 [...] MAMM 1 YR FDA Accredited Performing Facility: [facility] - Mammography/DEXA Imaging [address] [facility] [id number] Procedure Note Anna Pratt MD - 11/10/2024 MARIANNA HUTCHISON 1980 [id number] EXAM: MAMM SCREENING BILATERAL W CAD, 11/06/2024 [...] MAMM 1 YR FDA Accredited Performing Facility: [facility] - Mammography/DEXA Imaging [address] [facility] [address] [place] EMAIL SPECIALIST-DIRECTOR REPORT IMG MAMMOGRAPHY ORDERABL ES Final Result * MR lumbar spine with and without contrast (10/30/2024 1:22 PM EDT) Anatomical Region Laterality Modality MSK, Neuro, Spine, L-spine, Spine Covera N/A Magnetic Resonance 10/30/2024 2:44 PM EDT Narrative 10/30/2024 2:45 PM EDT Examination: MRI Lumbar spine with contrast. Date of Exam:10/30/2024 History:Low back pain Contrast:None Procedure: Multiplanar multisequence MR imaging performed through the lumbosacral spine including pre and post contrast T1 weighted images. Findings: The alignment is normal. There is no fracture. Vertebral body height and disc space height are well-maintained. There is no disc herniation or lateral recess stenosis. There is appropriate signal within the vertebral bodies and within the distal cord. There is appropriate signal within the posterior elements as well. The conus medullaris terminates at the thoracolumbar junction. The SI joints are patent. Discussion IMPRESSION: 1. Negative exam. Finalized by Franco Mckeon MD on 10/30/2024 2:45 PM Procedure Note Franco Mckeon MD - 10/30/2024 Examination: MRI Lumbar spine with contrast. Date of Exam:10/30/2024 History:Low back pain Contrast:None Procedure: Multiplanar multisequence MR imaging performed through thelumbosacral spine including pre and post contrast T1 weighted images. Findings: The alignment is normal. There is no fracture. Vertebral bodyheight and disc space height are well-maintained. There is no discherniation or lateral recess stenosis. There is appropriate signal withinthe vertebral bodies and within the distal cord. There is appropriatesignal within the posterior elements as well. The conus medullaris terminates at the thoracolumbar junction. The SIjoints are patent. Discussion IMPRESSION: 1. Negative exam. Finalized by Franco Mckeon MD on 10/30/2024 2:45 PM Bhavani Vences MD IMG MRI ORDERABLES Final Result * Vas art doppler lwr limited single (10/15/2024 4:16 PM EDT) Anatomical Region Laterality Modality Vascular N/A Ultrasound 10/15/2024 4:21 PM EDT Narrative 10/15/2024 6:07 PM EDT Right: Essentially normal PVR waveform contour at the ankle. PT COREY is 1.07; DP COREY is 1.09. TBI is 0.77. Multiphasic with diastolic flow reversal PT and DP CW Doppler waveforms. Left: Essentially normal PVR waveform contour at the ankle. PT COREY is 1.10; DP COREY is 1.11. TBI is 0.77. Multiphasic with diastolic flow reversal PT and DP CW Doppler waveforms. Conclusions: BILATERAL: Normal lower extremity COREY examination at rest.Normal lower extremity TBI at rest. Procedure Note Bessie Schmidt MD - 10/15/2024 Right: Essentially normal PVR waveform contour at the ankle. PT COREY is1.07; DP COREY is 1.09. TBI is 0.77. Multiphasic with diastolic flowreversal PT and DP CW Doppler waveforms. Left: Essentially normal PVR waveform contour at the ankle. PT COREY is1.10; DP COREY is 1.11. TBI is 0.77. Multiphasic with diastolic flowreversal PT and DP CW Doppler waveforms. Conclusions: BILATERAL: Normal lower extremity COREY examination atrest.Normal lower extremity TBI at rest. us Bhavani Vences MD CV VASCULAR ORDERABLES Final Res ult from Last 3 Months Additional Health Concerns Active Problems Noted Date Diagnosed Date Autogenerated Problem 11/20/2024 Insurance ANTH Care Teams Connie Cleaner Relationship Specialty Start Date End Date Services, [facility] [address] [place], [place] PCP - General Family Medicine 11/20/24
--- OUTSIDE RECORDS SUMMARY | 2024-11-20 21:15 | XMS_ITS | Encounter Summary ---
Author Organization [facility] [employer] [facility] tem Address [id number] [address] [place] [address] Care Team Providers Care Grades 7 8 Tutor Name Role Phone Services, [facility] Primary Care Provider Reason for Visit * Reason Comments Med Refill Encounter Details Date Type Department Care Team (Late st Contact Info) Description 04/28/2018 Refill [facility] Physicians General Surgery [address] [place] [address] Myron Tanner DO [address] [place], [place] [phone] Social History Tobacco Use Types Packs/Day Years Used Date Smoking Tobacco: Never Smokeless Tobacco: Never Alcohol Use Standard Drinks/Week Comments No 0 (1 standard drink = 0.6 oz pur e alcohol) Comments No Sex and Gender Information Value Date Recorded Sex Assigned at Not on file Legal Sex Female 11:22 AM EDT Gender Identity Not on file Sexual Orientation Not on file documented as of this encounter Plan of Treatment Upcoming Encounters Date Type Department Care Team (Latest Contact Info) Description 5 3:40 PM EDT Support Visit [facility] - Pre Admit [address] [place] [address] 5 10:15 AM EDT Hospital Encounter [facility] - Surgery [address] [place] [address] Myron Tanner DO [address] [place], [place] [id number] 5 10:15 AM EDT - 5 11:00 AM EDT Surgery [facility] - Surgery [address] [place] [address] Myron Tanner, [address] [place] [address] ESOPHAGOGASTRODUODENOSCOPY DIAGNOSTIC [19578 (CPT )] 5 3:30 PM EDT Appointment [facility] - Ultrasound [address] [place] [address] Zachary Blanco MD [address] [place], [place] [phone] 5 10:30 AM EDT Office Visit [facility] Physicians Neurology [place] [address] [place] [address] Deng Cantrell MD [address] [place] [address] [address], [address] [place] [address] Scheduled Procedures Name Priority Associated Diagnoses Date/Ti me ESOPHAGOGASTRODUODENOSCOPY DIAGNOSTIC nausea, rectal bleeding 11/24/2024 10:15 AM EDT COLONOSCOPY DIAGNOSTIC / SCREENING nausea, rectal bleeding 11/24/2024 10:15 AM EDT documented as of this encounter Visit Diagnoses Not on filedocumented in this encounter Care Teams Grades 7 8 Tutor Relationship Specialty Start Date End Date Services, [facility] [address] [place], [place] PCP - General Family Medicine 11/20/24 documented as of this encounter
--- OUTSIDE RECORDS SUMMARY | 2024-11-20 21:15 | XMS_ITS | Encounter Summary ---
Author Organization [facility] [employer] [facility] tem Address [facility] [place]-[id number] [address] [place] [address] Care Team Providers Care First Crusher Name Role Phone Services, [facility] Primary Care Provider Encounter Details Date Type Department Care Team (Latest Contact Info) Description 11/20/2024 Travel Social History Tobacco Use Types Packs/Day Years [...] Description 5 3:40 PM EDT Support Visit [facility] - Pre Admit [address] [place] [address] 5 10:15 AM EDT Hospital Encounter [facility] - Surgery [address] [place] [address] Myron Tanner, DO [address] [place] [address] 5 10:15 AM EDT - 5 11:00 AM EDT Surgery [facility] - Surgery [address] [place] [address] Myron Tanner, DO [address] [place] [address] ESOPHAGOGASTRODUODENOSCOPY DIAGNOSTIC [06209 (CPT )] 5 3:30 PM EDT Appointment [facility] - Ultrasound [address] [place] [address] Zachary Blanco MD [address] [place] [id number] 5 10:30 AM EDT Office Visit [facility] Physicians Neurology [place] [address] [place] [address] Deng Cantrell MD [address] [place] [address] [address], [address] [place] [address] Scheduled Procedures Name Priority Associated Diagnoses Date/Ti ma ESOPHAGOGASTRODUODENOSCOPY DIAGNOSTIC nausea, rectal bleeding 11/24/2024 10:15 [...] documented as of this encounter Care Teams First Crusher Relationship Specialty Start Date End Date [facility], [facility] [address] [place], [place] PCP - General Family Medicine 11/20/24 documented as of this encounter
--- OUTSIDE RECORDS SUMMARY | 2024-11-20 21:15 | XMS_ITS | Encounter Summary ---
Author Organization [facility] tem Address [facility]-[id number] [address] [place] [address] Care Team Providers Care Head Start Teacher Name Role Phone Unavailable Primary Care Provider Unavailabl e Encounter Details Date Type Department Care Team (Latest Contact Info) Description 11/06/2024 Travel Social History Tobacco Use Types Packs/Day [...] Description 5 3:40 PM EDT Support Visit [facility] - Pre Admit [address] [place] [address] 5 10:15 AM EDT Hospital Encounter [facility] - Surgery [address] [place] [address] Myron Tanner, DO [address] [place], [place] [phone] 5 10:15 AM EDT - 5 11:00 AM EDT Surgery [facility] - Surgery [address] [place] [address] Myron Tanner, DO [address] [place] [address] ESOPHAGOGASTRODUODENOSCOPY DIAGNOSTIC [68291 (CPT )] 5 3:30 PM EDT Appointment [facility] - Ultrasound [address] [place] [address] Zachary Blanco MD [address] [place], [place] [phone] 5 10:30 AM EDT Office Visit [facility] Physicians Neurology [address] [phone] Deng Cantrell MD [address] [place] [address] [address], [address] [place] [address] Scheduled Procedures Name Priority Associated Diagnoses Date/Ti me ESOPHAGOGASTRODUODENOSCOPY DIAGNOSTIC nausea, rectal bleeding 11/24/2024 10:15 AM EDT COLONOSCOPY DIAGNOSTIC / SCREENING nausea, rectal bleeding 11/24/2024 10:15 AM EDT documented as of this encounter Visit Diagnoses Not on filedocumented in this encounter
--- OUTSIDE RECORDS SUMMARY | 2024-11-20 21:15 | XMS_ITS | Encounter Summary ---
Author Organization [facility] tem Address [facility][id number] [address] [place] [address] Care Team Providers Care Scientific Database Curator Name Role Phone Unavailable Primary Care Provider Unavailabl e Reason for Visit * Reason Onset Date Comments New Patient 10/20/2024 Encounter Details Date Type Department Care Team (Late st Contact Info) Description 10/20/2024 Telephone [facility] Neurology, A Department of [facility] [address] [facility] [address] [place] [address] Federica Mackay New Patient Social History Tobacco Use Types Packs/Day Years [...] encounter Miscellaneous Notes * Telephone Encounter - Federica Mackay - 10/20/2024 4:06 PM EDT Please ask the following questions to the new patient that you are schedulin. IS THIS DUE TO AN ACCIDENT? -no 2. IS THIS WORKER'S COMP? PLEASE VERIFY IF THIS IS WORKERS COMP AND DOCUMENT (We do not accept any new workers comp cases) -no 3. WHAT INSURANCE? -Syd BCRICO 4. HAVE YOU EVER BEEN SEEN BY A NEUROLOGIST BEFORE? IF YES, WHO AND WHEN? IS THIS A SECOND OPINION? -yes years ago 5. ANY CHANCE OF NOW OR BEFORE YOUR APPOINTMENT? -no 6. OFFERED MARISABEL FOR SOONER APPOINTMENT? -yes 7. PATIENT IS SCHEDULED ON/WITH: -Dr. Cantrell 8. WHO CALLED TO SCHEDULE APPOINTMENT? -patient * Telephone Encounter - Elham Goldman - 10/20/2024 4:06 PM EDT Received [facility]12[facility]24 1:[facility] and I informed her that patient is scheduled to see Dr. Cantrell at [facility] on 02/17/25 10:30 - she voiced understanding. documented in this encounter Plan of Treatment Upcoming Encounters Date Type Department Care Team (Latest Contact Info) Description 5 3:40 PM EDT Support Visit [facility] - Pre Admit [address] [place] [address] 5 10:15 AM EDT Hospital Encounter [facility] - Surgery [address] [place] [address] Myron Tanner, DO [address] [place] [address] 5 10:15 AM EDT - 5 11:00 AM EDT Surgery [facility] - Surgery [address] [place] [address] Myron Tanner, DO [address] [place], [place] [phone] ESOPHAGOGASTRODUODENOSCOPY DIAGNOSTIC [27699 (CPT )] 5 3:30 PM EDT Appointment [facility] - Ultrasound [address] [place] [address] Zachary Blanco MD [facility] [place], [place] [phone] 5 10:30 AM EDT Office Visit [facility] Physicians Neurology [place] [address] [place] [address] Deng Cantrell MD [address] [place] [address] [address], [address] [place] [address] Scheduled Procedures Name Priority Associated Diagnoses Date/Ti me ESOPHAGOGASTRODUODENOSCOPY DIAGNOSTIC nausea, rectal bleeding 11/24/2024 10:15 AM EDT COLONOSCOPY DIAGNOSTIC / SCREENING nausea, rectal bleeding 11/24/2024 10:15 AM EDT documented as of this encounter Visit Diagnoses Not on filedocumented in this encounter
[2024-11-20 21:30] LABS: Lactate/Lactic Acid 1.8 mmol/L (0.4-2.0)
[2024-11-20 21:31] LABS: Alanine Aminotransferase 31 U/L (14-59); Albumin Globulin Ratio 1.1; Albumin Level 3.7 g/dL (3.4-5.0); Alkaline Phosphatase 58 U/L (46-116); Anion Gap 13.5; Aspartate Amino Transferase 18 U/L (15-37); Blood Urea Nitrogen 14.0 mg/dL (7.0-18.0); Calcium 9.0 mg/dL (8.5-10.1); Carbon Dioxide 23.8 mmol/L (21.0-32.0); Chloride 105 mmol/L (98-107); Estimated GFR (African America >60 (>=60 mL/min/1.73m^2); Estimated GFR (Non-African Ame >60 (>=60 mL/min/1.73m^2); Globulin 3.4 g/dL; Glucose 110 mg/dL (74-106); Lipase 45.0 U/L (16.0-77.0); Potassium 3.3 mmol/L (3.5-5.1); Sodium 139 mmol/L (136-145); Total Protein 7.1 g/dL (6.4-8.2)
[2024-11-20] MEDS: KETOROLAC TROMETHAMINE 30 MG/ML VIAL IVP (22:28)
== END 2024-11-20 22:40 | disposition home or self-care (01) ==
PROVIDERS: Emergency Provider Emergency Medicine
DX: R10.9 Unspecified abdominal pain (principal); Z80.0 Family history of malignant neoplasm of digestive organs
CPT/HCPCS: 36415; 74177; 80053; 81001; 83605; 83690; 84484; 84703; 85025; 96374; 96375; 99285; J1885; J2270; J2405; J3490; Q9967